=== PATIENT | male | born 1960 | race Caucasian/White ===

== ENCOUNTER 2019-08-26 20:00 | Emergency (ER) | payer OTHER ==
[2019-08-26] MEDS ORDERED: Bacitracin Oint 1 GM U/D Packet TOP ONE (20:30)
--- NOTE | 2019-08-26 20:32 | EDM.PDOC ---
ED HPI GENERAL MEDICAL PROBLEM - General Chief Complaint: Skin Complaint Stated Complaint: FISH HOOK RT PINKY Time Seen by Provider: 08/26/19 20:30 Source of Information: Reports: Patient History Limitations: Reports: No Limitations - History of Present Illness INITIAL COMMENTS - FREE TEXT/NARRATIVE: 58-year-old male with a edis of a treble hook embedded in his ulnar aspect of his pinky finger on the right hand. No other injury. Onset: Sudden Duration: Hour(s): (2 hours ago) Location: Reports: Lower Extremity, Right Associated Symptoms: Reports: No Other Symptoms Right Finger-Little Pain Score (Numeric/FACES): 3 - Related Data Allergies Allergy/AdvReac Type Severity Reaction Status Date / Time No Known Allergies Allergy Verified 08/26/19 20:58 ED ROS GENERAL - Review of Systems Review Of Systems: See Below Constitutional: Denies: Fever, Chills Respiratory: Denies: Shortness of Breath Cardiovascular: Denies: Chest Pain GI/Abdominal: Denies: Nausea, Vomiting Neurological: Reports: No Symptoms ED EXAM, SKIN/RASH Exam: See Below Exam Limited By: No Limitations General Appearance: Alert, No Apparent Distress Respiratory/Chest: No Respiratory Distress Extremities: Other (Exam is otherwise limited to the right hand. The small finger has 1 edis of the trouble hook embedded into the ulnar aspect of the paronychial area of the distal finger.) Neurological: Alert, Oriented Psychiatric: Normal Affect, Normal Mood Course - Vital Signs Last Recorded V/S: Last Vital Signs Temp 95.7 F L 08/26/19 20:52 Pulse 61 08/26/19 20:52 Resp 17 08/26/19 20:52 BP 137/96 H 08/26/19 20:52 Pulse Ox 96 08/26/19 20:52 - Orders/Labs/Meds Meds: Medications Discontinued Medications Generic Name Dose Route Start Last Admin Trade Name Freq PRN Reason Stop Dose Admin Bacitracin 1 dose 08/26/19 20:30 08/26/19 20:52 Bacitracin Oint 1 Gm TOP 08/26/19 20:31 1 dose ONETIME ONE Administration Lidocaine HCl 5 ml 08/26/19 20:30 08/26/19 20:52 Xylocaine-Mpf 1% INJECT 08/26/19 20:31 5 ml ONETIME ONE Administration - Re-Assessments/Exams Free Text/Narrative Re-Assessment/Exam: 08/26/19 20:48 The area was sterilized with alcohol, infiltrated with a small amount of lidocaine and the fishhook then removed with a needle colon. Bacitracin and a Band-Aid was applied, will keep the wound clean while healing. Recheck if concerns of infection. Departure - Departure Time of Disposition: 20:55 Disposition: Home, Self-Care 01 Clinical Impression: [place] injury to finger Qualifiers: Encounter type: initial encounter - Discharge Information Instructions: Puncture Wound, [id number] Referrals: PCP,None [Primary Care Provider] - Forms: ED Department Discharge Care Plan Goals: Keep wound covered and clean while healing, and recheck if concerns of infection or not healing satisfactorily. Sepsis Event Note (ED) - Focused Exam Vital Signs: Vital Signs Temp Pulse Resp BP Pulse Ox 08/26/19 20:52 95.7 F L 61 17 137/96 H 96 08/26/19 20:32 95.7 F L 61 17 137/96 H 96
== END 2019-08-26 21:00 | disposition home or self-care (01) ==
LOC: JP.ED 20:00
DX: S60.456A Superficial foreign body of right little finger, initial encounter (principal); W45.8XXA Other foreign body or object entering through skin, initial encounter
CPT/HCPCS: 99282; J2001